=== PATIENT | female | born 1965 | race Caucasian/White ===

== ENCOUNTER 2019-04-01 22:13 | Emergency (ER) | payer OTHER ==
[2019-04-01 23:06] VITALS: RESP 18
[2019-04-01] MEDS ORDERED: LIDOCAINE 5% PATCH TOPICAL STA (23:15)
[2019-04-01] MEDS ORDERED: KETOROLAC 30 MG/ML 1 ML VIAL IM STA (23:15)
[2019-04-01 23:46] LABS: Appearance,Urine Clear (Clear); Bacteria,Urine Rare /hpf; Bilirubin,Urine Negative (Negative); Blood,Urine Small (Negative); Color,Urine Yellow; Glucose,Urine (UA) Negative (Negative); Ketones,Urine Negative (Negative); Leukocyte Esterase,Urine Small (Negative); Mucus,Urine Rare /hpf; Nitrite,Urine Negative (Negative); PH, Urine 5.5 (5.0-8.0); Protein,Urine Trace (Negative); RBC,Urine 2 /hpf (0-5); Specific Gravity,Urine 1.029 (1.001-1.035); Squamous Epithelial Cell,Urine 6 /hpf (0-4); Urobilinogen,Urine <2.0 mg/dL (<2.0); WBC,Urine 10 /hpf (0-5)
--- NOTE | 2019-04-01 23:50 | XR ---
EXAMINATION TYPE: XR chest 2V DATE OF EXAM: 04/01/2019 COMPARISON: NONE HISTORY: Short of breath TECHNIQUE: 2 views FINDINGS: There is thoracic dextroscoliotic deformity. There is mild linear density at the lung bases . There is no heart failure. Heart size is normal. There is no pleural effusion. There are no hilar m asses. IMPRESSION: Mild subsegmental atelectasis at the lung bases. Normal heart.
[2019-04-01 23:53] VITALS: BP 150/90; PULSE 80; TEMP 97.8
--- NOTE | 2019-04-02 00:05 | ED ---
General Adult HPI - General Chief complaint: Shortness of Breath Stated complaint: back pain Time Seen by Provider: 04/01/19 22:36 Source: patient Mode of arrival: wheelchair Limitations: no limitations - History of Present Illness Initial comments: Dictation was produced using [employer] dictation software. please excuse any grammatical, word or spelling errors. Chief Complaint: This 53-year-old female presents with left-sided chest pain. History of Present Illness: This is 53-year-old female she has past medical history of scoliosis. Patient states she has worsening left-sided chest pain. Patient states she's had these symptoms before. She reports that it secondary to her scoliosis. Patient reports that she gets this pain frequently. She describes that it is sharp without any radiation of symptoms. It's worse with deep inspiration. She had an emergency department today because symptoms have not resolved in the time that it usually does. She's been having these symptoms for almost the whole day. She does report that her symptoms are worse with palpation to the area. The ROS documented in this emergency department record has been reviewed and confirmed by me. Those systems with pertinent positive or negative responses have been documented in the HPI. All other systems are other negative and/or noncontributory. PHYSICAL EXAM: General Impression: Alert and oriented x3, not in acute distress HEENT: Normocephalic atraumatic, extra-ocular movements intact, pupils equal and reactive to light bilaterally, mucous membranes moist. Cardiovascular: Heart regular rate and rhythm, S1&S2 audible, no murmurs, rubs or gallops Chest: Lungs clear to auscultation bilaterally, no rhonchi, no wheeze, no rales Abdomen: Bowel sounds present, abdomen soft, non-tender, non-distended, no organomegaly Musculoskeletal: Pulses present and equal in all extremities, no peripheral edema Motor: no focal deficits noted Neurological: CN II-XII grossly intact, no focal motor or sensory deficits noted Skin: Intact with no visualized rashes Psych: Normal affect and mood ED course: 53-year-old female presents with musculoskeletal left-sided chest pain. As upon arrival are within acceptable limits. Patient is reproducible at bedside. No concern for pulmonary embolus in that patient is not short of breath and pain is clearly reproducible bedside. Patient given Lidoderm patch and Toradol shot. X-rays unremarkable. Patient reevaluated after interventions with improvement of symptoms. Patient will be discharged. She is told to follow-up with a primary care physician for outpatient management of symptoms. Return parameters discussed. All questions answered. EKG interpretation: Ventricular rate 95, normal sinus rhythm,. Interval 132, care is 80, QTc 444. No NH prolongation, no QTC prolongation, nonspecific T-wave inversion in lead 3. Overall, this EKG is unremarkable - Related Data Allergies Allergy/AdvReac Type Severity Reaction Status Date / Time codeine Allergy Vomiting Verified 04/01/19 22:33 Penicillins Allergy Rash/Hives Verified 04/01/19 22:33 Review of Systems ROS Statement: Those systems with pertinent positive or pertinent negative responses have been documented in the HPI. ROS Other: All systems not noted in ROS Statement are negative. Past Medical History Additional Past Medical History / Comment(s): scoliosis,vertigo History of Any Multi-Drug Resistant Organisms: None Reported Past Surgical History: Cholecystectomy, Tubal Ligation Past Psychological History: No Psychological Hx Reported Smoking Status: Never smoker Past Alcohol Use History: None Reported Past Drug Use History: None Reported General Exam Limitations: no limitations Course Vital Signs 04/01/19 04/01/19 04/01/19 22:29 23:04 23:52 Temperature 98.3 F 97.8 F Pulse Rate 109 H 80 Respiratory 24 18 18 Rate Blood Pressure 175/89 150/90 O2 Sat by Pulse 99 100 Oximetry Medical Decision Making - Lab Data Lab Results 04/01/19 Range/Units 23:28 Urine Color Yellow Urine Appearance Clear (Clear) Urine pH 5.5 (5.0-8.0) Ur Specific [place] 1.029 (1.001-1.035) Urine Protein Trace H (Negative) Urine Glucose (UA) Negative (Negative) Urine Ketones Negative (Negative) Urine Blood Small H (Negative) Urine Nitrite Negative (Negative) Urine Bilirubin Negative (Negative) Urine Urobilinogen <2.0 (<2.0) mg/dL Ur Leukocyte Esterase Small H (Negative) Urine RBC 2 (0-5) /hpf Urine WBC 10 H (0-5) /hpf Ur Squamous Epith Cells 6 H (0-4) /hpf Urine Bacteria Rare H (None) /hpf Urine Mucus Rare H (None) /hpf Disposition Clinical Impression: Strain of chest wall Disposition: HOME SELF-CARE Condition: Good Instructions (If sedation given, give patient instructions): Chest Pain (ED) Is patient prescribed a controlled substance at d/c from ED?: No Referrals: Stanley Villagomez MD [REFERRING] - 1-2 days Time of Disposition: 00:12
== END 2019-04-02 00:24 | disposition home or self-care (01) ==
LOC: EC 22:13
DX: S29.011A Strain of muscle and tendon of front wall of thorax, initial encounter (principal); Z88.0 Allergy status to penicillin; Z88.5 Allergy status to narcotic agent; X58.XXXA Exposure to other specified factors, initial encounter
CPT/HCPCS: 81001; 71046; 99285; 96372; J1885